=== PATIENT | male | born 1990 | race Two or more races ===

== ENCOUNTER 2022-07-28 17:11 | Emergency (ER) | payer SELFPAY ==
[~2022-07-28] VITALS: Ht 165.1 cm; Wt 60.0 kg
[2022-07-28 17:16] VITALS: BP 0/0
== END 2022-07-28 17:25 | disposition left against medical advice (07) ==
LOC: ER 17:11
DX: Z53.21 Procedure and treatment not carried out due to patient leaving prior to being seen by health care provider (principal)